=== PATIENT | female | born 1975 | race Caucasian/White ===

== ENCOUNTER 2022-12-30 11:46 | Outpatient (REF) | payer OTHER, MEDICAID, SELFPAY ==
--- NOTE | ~2022-12-30 | MR_ITS ---
EXAMINATION: MR LUMBAR SPINE WITHOUT AND WITH CONTRAST CLINICAL INFORMATION: Lower back pain extending into bilateral legs with burning, prior surgery COMPARISON: Outside MR lumbar spine with and without contrast 09/20/2022 TECHNIQUE: MRI of the lumbar spine was obtained using routine sequences with and without contrast. Intravenous contrast: Gadavist 8 mL FINDINGS: Normal anatomic alignment. No suspicious marrow signal or focal osseous lesion. The vertebral body heights are maintained. Disc desiccation at L4-L5 and L5-S1 with L5-S1 disc height loss The conus medullaris terminates at the level of L1-L2. The distal spinal cord is normal in appearance. The cauda equina nerve roots appear normal. No significant abnormalities of the paraspinal musculature. Subcutaneous edema throughout the dorsal soft tissues. Limited evaluation of the intra-abdominal structures without significant abnormalities. The abdominal aorta is of normal contour and caliber. SPINAL LEVELS: L1-L2: No significant spinal canal or neuroforaminal narrowing. L2-L3: No significant spinal canal or neuroforaminal narrowing. Mild facet arthropathy. L3-L4: No significant spinal canal or neuroforaminal narrowing. Shallow disc bulge and mild facet arthropathy. L4-L5: Shallow disc bulge with superimposed right foraminal protrusion. Mild to moderate facet arthropathy no significant central spinal canal stenosis. Stable mild to moderate right neural foraminal narrowing. L5-S1: Facet arthropathy. Postsurgical changes from right hemilaminectomy with enhancement along the surgical tract in the dorsal soft tissues. Similar appearance of solid enhancement in the right ventral epidural space just above the disc space (series 7 image 10), likely reflecting postoperative granulation tissue, which may impinge the exiting right L5 nerve root. There is also a stable residual/recurrent central and right subarticular disc protrusion with peripheral enhancement which compresses and posteriorly displaces the traversing right S1 nerve root. Mild stenosis of the right aspect of the spinal canal. Mild bilateral neural foraminal narrowing. MR/MR lumbar spine wo/w con IMPRESSION: Stable postoperative changes at L5-S1 status post right hemilaminectomy. There is a combination of residual/recurrent right central and subarticular disc protrusion as well as enhancing postoperative scarring in the right ventral epidural space which contribute to impingement of the right L5 and S1 nerve roots.
== END 2022-12-30 11:47 | disposition home or self-care (01) ==
LOC: HO.MRI 11:46
PROVIDERS: PCP Family Medicine; Visit Provider Neurological Surgery
DX: M51.16 Intervertebral disc disorders with radiculopathy, lumbar region (principal)
CPT/HCPCS: 72158; A9585

== ENCOUNTER 2023-01-28 09:46 | Day surgery (SDC) | payer OTHER, MEDICAID, SELFPAY ==
--- NOTE | 2023-01-21 | ECG_ITS ---
Test Reason : preop Blood Pressure : / mmHG Vent. Rate : 078 BPM Atrial Rate : 078 BPM P-R Int : 144 ms QRS Dur : 084 ms QT Int : 390 ms P-R-T Axes : 059 025 044 degrees QTc Int : 444 ms Normal sinus rhythm Normal ECG No previous ECGs available Referred By: Carol Alvarado Electronically Signed By:Rip Escoto
[2023-01-21 13:10] VITALS: BP 153/65; PULSE 76; RESP 20; O2SAT 98; BMI 28.3
--- NOTE | 2023-01-21 13:19 | P.CONAN_ITS ---
Documented by User: Carol Alvarado NP 01/27/23 08:50 HPI - Anesthesia Eval Consult details Narrative: 47yo F for Right REDO L5-S1 Microdiscectomy *Torus palatinus* Current 2 ppd smoker [facility] Past Medical History Medical History (Updated 01/21/23 @ 13:08 by Jesusita Robert RN) Anxiety and depression Asthma Elevated cholesterol GERD (gastroesophageal reflux disease) HTN (hypertension) Hypothyroid Insomnia Perforated eardrum Renal calculi Thyroid nodule Torus palatinus Family History Family history of problems with anesthesia: No Surgical History Surgical History (Updated 01/28/23 @ 10:10 by Renetta Sexton) H/O colonoscopy History of thyroidectomy, total Hx of breast biopsy Hx of lumbar discectomy Hx of partial thyroidectomy Hx of tubal ligation History of Problems with Anesthesia: No Social History Social History Are you a primary manager home healthcare to a significant other at home: No Do you presently have visiting nurse or other home services: No Patient Tobacco Use Status: Current everyday Tobacco user Tobacco use type: Cigarette Cigarette Packs Per Day: 2 Cigarettes Per Day: 40.0 Years Smoked: 35 Patient Interested in Nicotine Replacement: Yes Use of substances other than those prescribed or required for medical reasons: No Have you been hit, kicked, punched, or otherwise hurt by someone within the past year? If so, by whom?: No Are you DNR?: No Advance Directives Information Provided: Yes (as above noted-not on file [facility] Advance Directives on File: No Recently lost weight without trying: No Eating poorly because of decreased appetite: No Nutrition Risks: No Nutritional Risk Patient : No ([id number]) FDLMP: 12/12/22 : No Poor oral hygiene: No (left upper chipped teeth/missing teeth) Narrative Narrative: No recent illness CP related to anxiety, Asthma at baseline Meds Allergies Allergy/AdvReac Type Severity Reaction Status Date / Time adhesive tape Allergy Intermediate Hives Verified 01/21/23 13:07 codeine Allergy Intermediate Vomiting/hi Verified 01/21/23 13:07 ves Penicillins Allergy Intermediate vomiting/hi Verified 01/21/23 13:07 ves Home Medications Medication Instructions Recorded Confirmed Last Taken Type albuterol sulfate 90 mcg/actuation 2 puff inhalation Q4H PRN wheezing 01/20/23 01/28/23 Unknown History aerosol inhaler (Ventolin HFA) baclofen 10 mg tablet 10 mg PO BEDTIME PRN pain 01/20/23 01/28/23 Unknown History clonazepam 2 mg tablet 2 mg PO BEDTIME PRN insomnia 01/20/23 01/28/23 Unknown History fenofibrate 160 mg tablet 160 mg PO DAILY 01/20/23 01/28/23 Unknown History fluticasone propionate 110 2 puff inhalation BID 01/20/23 01/28/23 01/28/23 08:00 History mcg/actuation HFA aerosol inhaler (Flovent HFA) gabapentin 300 mg capsule 300 mg PO BID 01/20/23 01/28/23 01/28/23 08:00 History lamotrigine 200 mg tablet 200 mg PO QAM 01/20/23 01/28/23 01/28/23 08:00 History levothyroxine 50 mcg tablet 50 mcg PO DAILY 01/20/23 01/28/23 01/28/23 08:00 History omeprazole 20 mg capsule,delayed 20 mg PO DAILY 01/20/23 01/28/23 01/28/23 08:00 History release trazodone 100 mg tablet 200 mg PO BEDTIME 01/20/23 01/28/23 Unknown History zolpidem 10 mg tablet 10 mg PO BEDTIME 01/20/23 01/28/23 Unknown History acetaminophen 500 mg tablet 1,000 mg PO TID 01/21/23 01/28/23 Unknown History loratadine 10 mg tablet 10 mg PO BEDTIME 01/21/23 01/28/23 Unknown History lurasidone 120 mg tablet 120 mg PO QPM 01/21/23 01/28/23 Unknown History Exam Exam Date and Time: January 21, 2023 131 Pertinent Lab Results Pertinent Lab Results: Lab Results 01/21/23 01/21/23 Range/Units 13:48 13:48 WBC 10.2 (4.8-10.8) X10*3/uL RBC 4.28 (4.20-5.50) X10*6/uL Hgb 12.8 (12.0-16.0) g/dl Hct 39.1 (37.0-47.0) % MCV 91.4 (80.0-98.0) fL MCH 29.9 (27.0-33.0) pg MCHC 32.7 (31.0-35.0) g/dl RDW 13.7 (11.0-16.0) % Plt Count 289 (160-400) X10*3/uL MPV 9.0 L (9.4-12.3) fL Absolute Nucleated RBC 0.000 (0.0-0.012) X10*3/uL Nucleated RBC % (auto) 0.0 (0.0-0.2) /100WBC Sodium 140 (135-145) mmol/L Potassium 5.3 H (3.3-5.1) mmol/L Chloride 106 (96-108) mmol/L Carbon Dioxide 25 (22-29) mmol/L Anion Gap 14 (12-20) BUN 7 L (9-16) mg/dL Creatinine 0.82 (0.5-1.4) mg/dL Estim Creat Clear Calc 85.9 Estimated GFR > 60 Random Glucose 97 (60-115) mg/dL Calcium 9.5 (8.4-10.2) mg/dL Narrative Narrative: EKG 01/2023 Vent. Rate : 078 BPM ? ? Atrial Rate : 078 BPM ?? P-R Int : 144 ms? QRS Dur : 084 ms ? ? QT Int : 390 ms ? ? ? P-R-T Axes : 059 025 044 degrees ?? QTc Int : 444 ms ? Normal sinus rhythm Normal ECG No previous ECGs available Airway Mallampati Class: II (Torus palatinus) TM Dist: >3cm Neck ROM: Full Loose/Missing/Broken Teeth: Yes (Poor dentition throughout, many missing and chipped) Heart: RRR Lungs: CTAB Assessment and Plan Assessment Anesthesia Assessment: Anesthesia Plan Discussed, Smoking Cess. Discussed and PAT Visit Final Anesthetic Review Family History of Problems with Anesthesia: No History of Problems with Anesthesia: No Documented by User: Rian Bolton MD 01/28/23 11:01 [facility] Past Medical History Medical History (Updated 01/21/23 @ 13:08 by Jesusita Robert RN) Anxiety and depression Asthma Elevated cholesterol GERD (gastroesophageal reflux disease) HTN (hypertension) Hypothyroid Insomnia Perforated eardrum Renal calculi Thyroid nodule Torus palatinus Surgical History Surgical History (Updated 01/28/23 @ 10:10 by Renetta Sexton) H/O colonoscopy History of thyroidectomy, total Hx of breast biopsy Hx of lumbar discectomy Hx of partial thyroidectomy Hx of tubal ligation Social History Social History Are you a primary manager home healthcare to a significant other at home: No Do you presently have visiting nurse or other home services: No Patient Tobacco Use Status: Current everyday Tobacco user Tobacco use type: Cigarette Cigarette Packs Per Day: 2 Cigarettes Per Day: 40.0 Years Smoked: 35 Patient Interested in Nicotine Replacement: Yes Use of substances other than those prescribed or required for medical reasons: No Have you been hit, kicked, punched, or otherwise hurt by someone within the past year? If so, by whom?: No Are you DNR?: No Advance Directives Information Provided: Yes (as above noted-not on file [facility] Advance Directives on File: No Recently lost weight without trying: No Eating poorly because of decreased appetite: No Nutrition Risks: No Nutritional Risk Patient : No ([id number]) FDLMP: 12/12/22 : No Poor oral hygiene: No (left upper chipped teeth/missing teeth) Meds Allergies Allergy/AdvReac Type Severity Reaction Status Date / Time adhesive tape Allergy Intermediate Hives Verified 01/21/23 13:07 codeine Allergy Intermediate Vomiting/hi Verified 01/21/23 13:07 ves Penicillins Allergy Intermediate vomiting/hi Verified 01/21/23 13:07 ves Home Medications Medication Instructions Recorded Confirmed Last Taken Type albuterol sulfate 90 mcg/actuation 2 puff inhalation Q4H PRN wheezing 01/20/23 01/28/23 Unknown History aerosol inhaler (Ventolin HFA) baclofen 10 mg tablet 10 mg PO BEDTIME PRN pain 01/20/23 01/28/23 Unknown History clonazepam 2 mg tablet 2 mg PO BEDTIME PRN insomnia 01/20/23 01/28/23 Unknown History fenofibrate 160 mg tablet 160 mg PO DAILY 01/20/23 01/28/23 Unknown History fluticasone propionate 110 2 puff inhalation BID 01/20/23 01/28/23 01/28/23 08:00 History mcg/actuation HFA aerosol inhaler (Flovent HFA) gabapentin 300 mg capsule 300 mg PO BID 01/20/23 01/28/23 01/28/23 08:00 History lamotrigine 200 mg tablet 200 mg PO QAM 01/20/23 01/28/23 01/28/23 08:00 History levothyroxine 50 mcg tablet 50 mcg PO DAILY 01/20/23 01/28/23 01/28/23 08:00 History omeprazole 20 mg capsule,delayed 20 mg PO DAILY 01/20/23 01/28/23 01/28/23 08:00 History release trazodone 100 mg tablet 200 mg PO BEDTIME 01/20/23 01/28/23 Unknown History zolpidem 10 mg tablet 10 mg PO BEDTIME 01/20/23 01/28/23 Unknown History acetaminophen 500 mg tablet 1,000 mg PO TID 01/21/23 01/28/23 Unknown History loratadine 10 mg tablet 10 mg PO BEDTIME 01/21/23 01/28/23 Unknown History lurasidone 120 mg tablet 120 mg PO QPM 01/21/23 01/28/23 Unknown History Assessment and Plan Final Anesthetic Review ASA Class: III Final Preanesthetic Review: No Changes in Pt Med Stat, Meds/Allgs Chart Reviewed, Consent Obtained/Reviewed and Anes Risks/Benef Reviewed Patient Risk: Intermediate Procedure Risk: Intermediate Anesthetic Plan Anesthetic Plan: GA and Agree w/ Assess. and Plan Disposition: Standard PACU
[2023-01-21 14:04] LABS: Hematocrit 39.1 % (37.0-47.0); Hemoglobin 12.8 g/dl (12.0-16.0); Mean Corpuscular HGB Conc 32.7 g/dl (31.0-35.0); Mean Corpuscular Hemoglobin 29.9 pg (27.0-33.0); Mean Corpuscular Volume 91.4 fL (80.0-98.0); Platelet Count 289 X10*3/uL (160-400); Red Blood Count 4.28 X10*6/uL (4.20-5.50); Red Cell Distribution Width 13.7 % (11.0-16.0); White Blood Count 10.2 X10*3/uL (4.8-10.8)
[2023-01-21 14:35] LABS: Anion Gap 14 (12-20); Blood Urea Nitrogen 7 mg/dL (9-16); Calcium 9.5 mg/dL (8.4-10.2); Carbon Dioxide 25 mmol/L (22-29); Chloride 106 mmol/L (96-108); Creatinine Clr Calc Pharmacy 85.9; Estimated Glomerular Filt Rate > 60; Glucose Random 97 mg/dL (60-115); Potassium 5.3 mmol/L (3.3-5.1); Sodium 140 mmol/L (135-145)
[2023-01-28] VITALS (10 sets, daily range): BP systolic 119–149; BP diastolic 50–70; PULSE 65–78; RESP 12–17; TEMP 36.1–36.7; O2SAT 97–100; BMI 28.5
--- NOTE | ~2023-01-28 | FL_ITS ---
EXAMINATION: XR FLUOROSCOPY WITH IMAGES CLINICAL INFORMATION: Microdiscectomy, redo. COMPARISON: MR lumbar spine 12/30/2022 TECHNIQUE: Fluoroscopy Supervised By: Dr. Franklyn Coffey. Fluoroscopy Time: Under 1 minute. Cumulative Dose: 4.31 mGy. DAP: 1.04 Gycm2. Images: 1. FINDINGS: There is a conduit posterior soft tissues through which a cannula is seen with tip overlying the lumbosacral disc at level mid vertebral body. FL/FL guidance in OR IMPRESSION: Fluoroscopy for neurosurgical procedure.
[2023-01-28] MEDS: Albuterol Sulfate (0.083%) 2.5 MG/3 ML VIAL.NEB INHALE (10:12)
--- NOTE | 2023-01-28 10:15 | PC.NURSE ---
VERIFIED PREOP VANCO DOSE OF 1000MG WITH LAUREN FROM PHARMACY.
[2023-01-28] MEDS: Gabapentin 300 MG CAPSULE PO (10:19)
[2023-01-28] MEDS: methocarbamoL 750 MG TABLET PO (10:19)
[2023-01-28] MEDS: Lactated Ringers 1,000 ML 100 ML IVCONT (10:19)
[2023-01-28] MEDS: vancomycin HCL 1,000 MG in 0.9 % Sodium Chloride 250 ML 270 MG IV (10:35)
--- NOTE | 2023-01-28 12:15 | PC.NURSE ---
Electrolytes drawn at bedside pre perop order by radio communications mechanician Mirna. Results shown pending in computer. Marie GLOVE BRUSHER at bedside for report. Labs shown still pending. This RN reached out to lab and was told by Iris The specimen was received however it was hemolized and unable to be run properly, we will need to come and redraw her . Dr. Ratliff at bedside and made aware of this. All most recent labs shown to him. Per him, no need for redraw at this time. May proceed with surgery without electyolyte results. Marie made aware.
--- NOTE | 2023-01-28 13:44 | PM.DS ---
DS: Providers Provider Date of Service: 01/28/23 Date of discharge: 01/28/23 Primary care physician: Kentrell Reynolds MD Admitting clinician: Franklyn Coffey DS: Diagnosis Discharge Diagnosis (1) Back pain of lumbar region with sciatica: Status: Acute DS: Summary Time Spent with Patient Time attestation: Total time managing care of this patient today ____ minutes. Discharge coordination time: Less than 30 minutes Quality: Safe Use of Opioids Does Pt have an Active Cancer Diagnosis on the Problem List?: No Quality: Stroke Does the patient have a stroke diagnosis?: No Physical Exam Vital Signs: Vital Signs: Last Vital Signs Temp 98.1 F 01/28/23 10:14 Pulse 65 01/28/23 10:14 Resp 16 01/28/23 10:14 BP 149/70 H 01/28/23 10:14 Pulse Ox 100 01/28/23 10:14 O2 Del Method Room Air 01/28/23 10:14 BMI result Body Mass Index 28.5 Discharge Plan Discharge Patient Disposition: Home, Self-Care Referrals: Kentrell Reynolds MD [Primary Care Provider] - 1 Week Discharge Medications: New docusate sodium [Colace] 100 mg capsule 100 mg PO BID Qty: 20 0RF oxycodone 5 mg tablet 5 mg PO Q4H PRN (Reason: pain) Qty: 30 0RF Rx Instructions: Partial Fill upon patient request. Continued lamotrigine 200 mg tablet 200 mg PO QAM trazodone 100 mg tablet 200 mg PO BEDTIME baclofen 10 mg tablet 10 mg PO BEDTIME PRN (Reason: pain) levothyroxine 50 mcg tablet 50 mcg PO DAILY clonazepam 2 mg tablet 2 mg PO BEDTIME PRN (Reason: insomnia) gabapentin 300 mg capsule 300 mg PO BID omeprazole 20 mg capsule,delayed release(DR/EC) 20 mg PO DAILY zolpidem 10 mg tablet 10 mg PO BEDTIME albuterol sulfate [Ventolin HFA] 90 mcg/actuation HFA aerosol inhaler 2 puff inhalation Q4H PRN (Reason: wheezing) fluticasone propionate [Flovent HFA] 110 mcg/actuation HFA aerosol inhaler 2 puff inhalation BID fenofibrate 160 mg tablet 160 mg PO DAILY acetaminophen 500 mg Tablet 1,000 mg PO TID loratadine 10 mg Tablet 10 mg PO BEDTIME lurasidone 120 mg tablet 120 mg PO QPM Discharge Orders: Discharge Order (Routine); Ordered 01/28/23 Ordered By: Alexandr Cavazos Diet: Advance to usual diet Activity on Discharge: As tolerated Activity Restrictions/Additional Instructions: After your spinal surgery we ask you to observe the following restrictions/guidelines: Activity: It is normal to feel some discomfort as you increase your activity, but that will improve with time. We ask you avoid heavy lifting or acitivities that cause pain. As a general rule, 8lbs is a safe limit for lifting right after surgery. Walk as much as you feel comfortable but not to exhaustion. You will feel extra tired the first few days after surgery. Stay well hydrated. It is OK to walk up and down stairs You may return to driving when you are off narcotics (such as vicodin, oxycodone, dilaudid, etc), and you are back to normal functional capacity. If you have any concerns please check with office before driving. Return to work is specific to each patient and each surgery, so please speak with your doctor/PA at first follow up. Please bring paperwork such as FMLA at that time if you need it filled out. Medications: We will give you a short supply of narcotics after surgery (usually one weeks worth). If you need more please call the office but do not use more than prescribed. You will need to give our office 48 hours notice if you need narcotics refilled and we do not fill narcotics on weekends or evenings. If you are on a narcotic, it is a good idea to take a stool softener such as colace or senna to avoid constipation If you take blood thinner such as aspirin, Plavix, Coumadin, Effient, Eliquis etc for conditions such as Afib, DVT, Pulmonary embolus, coronary disease, stents etc please speak with your surgeon about specific details as to when you can resume these medications. You can resume NSAIDs on post op day 1 (eg: Motrin, Naproxen, etc). Follow up: Please call the office, , after surgery to arrange a 3 week follow up for wound check. Wound Care: You may remove your dressing on the first day after surgery. You may leave open to air. Please do not remove the steri strips underneath. they will fall off on their own in one week. IT IS NORMAL FOR THE WOUND TO OOZE OR BE BLOODY FOR A FEW DAYS AFTER SURGERY. IF THIS HAPPENS JUST PLACE NEW DRESSING OVER IT TO AVOID STAINING CLOTHES. You may shower on post op day # 1 We ask that you do not let the water soak the wound. If it does get wet, just towel dry lightly. Please do not scrub your incision or place any type of chemical/ointment on the wound. No tub baths, pools or jacuzzis for one month. If you have any leaking or redness from your wound, or fevers, please call office
--- NOTE | 2023-01-28 13:58 | W.PM.OPN ---
Operative Note Operative Note Date of Service: 01/28/23 Narrative: Preoperative diagnosis: Recurrent L5-S1 lumbar radiculopathy due to disc herniation Postoperative diagnosis: Same Procedure: Recurrent lumbar microdiskectomy L5-S1, right side with microscope Surgeon: Franklyn Coffey MD, PhD Manufactured Buildings Repairer: Alexandr Cavazos PA-C This 47-year-old female had a previous lumbar microdiskectomy done where a big herniation was removed. The majority of her symptoms initially improved but then she started complaining of bilateral leg pain greater right side is more affected than the left side. A repeat MRI possibly shows ongoing compression of the L5 nerve root on the right side. The patient was offered a redo lumbar microdiskectomy L5-S1 to decompress the nerve root. She is aware that this is not going to help with her left-sided symptoms. The procedure complications were explained. The patient was consented. The patient was brought to the operating room and endotracheally intubated. The patient was turned in a prone position on the Joss frame. Prepping and draping was done followed by time-out. A mid lumbar incision was made followed by release of the paravertebral muscles on the right side to expose the L5-S1 interspace. An intraoperative x-rays obtained to confirm the correct level. The microscope was brought in. The previous L5 laminotomy was extended cranially. The flavum ligament was opened. The S1 nerve root was identified and retracted medially to expose the L5-S1 disc space. I inspected the intraforaminal area by doing a partial facetectomy. I removed some disc material laterally from the thecal sac but a clear disc herniation was not found. The previous annulotomy defect was seen but again no significant disc herniation was found. The S1 nerve root was clearly decompressed. At was no clear compression of the L5 nerve root. Hemostasis was done. The microscope was removed. Marcaine was injected intramuscularly.The incision was closed in two layers. Steri-Strips used to approximate seizure. An op-site were taken there was used to cover the incision. All sponge and needle counts were correct. Patient was extubated and transported in stable condition to recovery room. This procedure was done with the aid of a physician office clerk assistant who performed the initial exposure until the microscope was brought in and performed the closure of the incision. Anesthesia: General Blood loss: 30 mL Complications: None Specimen: None Disposition: Discharge home
--- NOTE | 2023-01-28 14:31 | PC.NURSE ---
Dr. Barclay ordered to not draw electrolytes. Says he will cancel order
[2023-01-28] MEDS: fentaNYL citrate/PF 100 MCG/2 ML VIAL 50 MCG IVPUSH (14:39)
[2023-01-28] MEDS: oxyCODONE HCl Immed Release 5 MG TABLET PO (14:41)
[2023-01-28] MEDS: ondansetron HCL 4 MG/2 ML VIAL IVPUSH (14:54)
== END 2023-01-28 15:43 | disposition home or self-care (01) ==
PROVIDERS: Nurse Practitioner; PCP Family Medicine; Visit Provider Neurological Surgery
PROC: (CPT 63042; principal; 2023-01-28 11:50)
DX: M51.26 Other intervertebral disc displacement, lumbar region (principal); M79.604 Pain in right leg; I10 Essential (primary) hypertension; E78.00 Pure hypercholesterolemia, unspecified; J45.909 Unspecified asthma, uncomplicated; E89.0 Postprocedural hypothyroidism; K21.9 Gastro-esophageal reflux disease without esophagitis; M27.0 Developmental disorders of jaws; Z79.51 Long term (current) use of inhaled steroids; Z79.899 Other long term (current) drug therapy; Z88.0 Allergy status to penicillin; Z88.8 Allergy status to other drugs, medicaments and biological substances; Z98.890 Other specified postprocedural states; F17.210 Nicotine dependence, cigarettes, uncomplicated
CPT/HCPCS: 63042; 36415; 80048; 85027; 93005; 94640; J0131; J1885; J2405; J3010; J3370

== ENCOUNTER → 2023-03-05 15:21 | Outpatient (BNVA) | payer OTHER, MEDICAID, SELFPAY | PROVIDERS: Visit Provider Physician Assistant ==

== ENCOUNTER 2025-02-26 15:16 | Outpatient (AMB) | payer OTHER, MEDICAID, SELFPAY ==
--- NOTE | 2025-02-26 15:28 | A.SPINEOV_ITS ---
Intake Visit Reasons: back pain after surgery Intake Note: Ms. Campa is here today c/o back pain after surgery. Customer Assistance Representative Required: No Allergies adhesive tape Allergy (Intermediate, Verified 01/21/23 13:07) Hives codeine Allergy (Intermediate, Verified 01/21/23 13:07) Vomiting/hives Penicillins Allergy (Intermediate, Verified 01/21/23 13:07) vomiting/hives Assessment & Plan Assessment & Plan (1) Back pain of lumbar region with sciatica: Code(s): M54.40 - Lumbago with sciatica, unspecified side Category: Medical Plan Mrs campa is here in follow-up. We did 2 previous microdiskectomies on her, the last 1 was about 2 years ago and at that time we did not find any significant disc material compressing the nerves. She has had chronic radiculopathy in her legs for years. Apparently when she went back to the [place] [facility], she deferred getting a spinal cord stimulator because she did not want anymore surgery. She continues to complain of sensitivity in her low back with sitting as well as pain down her legs with walking. She has not had an MRI in a few years so I think it is worth checking on things to make sure nothing has changed. She has done the injections and has been taking morphine pills and Tylenol to help with the discomfort. I will see her back after the MRI is completed. She would like to do it at [facility] and will come back with the disc to review. Total amount of time spent in this visit was 20 minutes in discussion of symptoms, ordering MRI imaging results and subsequent plan of care Alexandr Coffey MD,PhD [facility] Orders: Orders MR lumbar spine wo/w con Today M54.40 - Lumbago with sciatica, unspecified side Coding Level of Care Code Est Pt Level 3 (27591) Diagnoses Back pain of lumbar region with sciatica M54.40
--- OUTSIDE RECORDS SUMMARY | 2025-02-26 16:49 | XMS_ITS | Clinical Summary ---
Author Organization [address] Building Address [address] [place] [phone] Phone Care Team Providers Care Ct Manager Name Role Phone Paulino Justice MD Primary Care Provider [phone] Allergies Active Allergy Reactions Criticality Noted Date Comments Adhesive Tape-Silicones 07/08/2005 [place] And Derivatives Nausea And Vomiting 07/08 Codeine Hives 07/08/2005 Penicillin G Potassium Hives 07/08/2005 Spinach Hives Low 12/20/2018 Cannot have canned Medications zolpidem (AMBIEN) 10 mg tablet Take 1 tablet (10 mg total) by mouth at bedtime. Active morphine (MSIR) 15 mg tablet Take 1 tablet (15 mg total) by mouth every 4 (four) hours if needed. Active lurasidone (LATUDA) 60 mg tablet Take 1 tablet (60 mg total) by mouth 1 (one) time each day with breakfast. 5 Active traZODone (DESYREL) 100 mg tablet Take 1 tablet (100 mg total) by mouth at bedtime. Active fenofibrate (LOFIBRA) 160 mg tablet Take 1 tablet (160 mg total) by mouth 1 (one) time each day. 90 tablet 1 5 Active aspirin 81 mg EC tablet Take 1 tablet (81 mg total) by mouth 1 (one) time each day. 90 tablet 1 5 Active levothyroxine (SYNTHROID, LEVOTHROID) 50 mcg tablet Take 1 tablet (50 mcg total) by mouth 1 (one) time each day. 90 tablet 1 5 Active omeprazole (PriLOSEC) [address] capsule Take 1 capsule (40 mg total) by mouth 1 (one) time each day. 90 capsule 1 5 Active albuterol HFA (PROAIR HFA ; PROVENTIL HFA ; VENTOLIN HFA) 90 mcg/actuation inhaler Inhale 2 puffs by mouth every 6 (six) hours if needed for wheezing or shortness of breath. 6.7 g 5 Active gabapentin (NEURONTIN) 300 mg capsule Take 1 capsule (300 mg total) by mouth 1 (one) time each day. 90 capsule 5 Active fluticasone furoate (ARNUITY ELLIPTA) 100 mcg/actuation blister with device inhalerIndicatio ns:Mild intermittent asthma without complication Inhale 1 puff by mouth 1 (one) time each day. 1 each 3 5 Active ferrous sulfate 325 mg (65 mg iron) EC tablet Take 1 tablet (325 mg total) by mouth 3 (three) times a day with meals. Do not crush, chew, or split. 270 each 1 5 Active docusate sodium (COLACE) 100 mg capsule Take 1 capsule (100 mg total) by mouth 2 (two) times a day. 180 capsule 1 5 Active docusate sodium (COLACE) 100 mg capsule Take 1 capsule (100 mg total) by mouth 2 (two) times a day. 180 capsule 1 5 02/16/20 25 Discontin ued(Reord er) ferrous sulfate 325 mg (65 mg iron) EC tablet Take 1 tablet (325 mg total) by mouth 3 (three) times a day with meals. Do not crush, chew, or split. 30 each 5 5 02/16/20 25 Discontin ued(Reord er) Hospital, Clinic, or Other Facility Administered Medication Ordered Dose Route Frequency Start Date End Date Status fluticasone furoate (ARNUITY ELLIPTA) inhaler blister with device 1 puffIndications:Mild intermittent asthma without complication 1 puff inhl Daily 07/19/2024 Active Active Problems Problem Noted Date Diagnosed Date Hemorrhage of rectum and anus 07/10/2024 Elevated blood pressure reading 09/11/2022 History of COVID-19 02/16/2022 Hiatal hernia 07/15/2021 Kidney stone 07/15/2021 Overview (07/10/2024): Bilateral Low back pain 06/12/2019 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 Mixed hyperlipidemia 01/03/2015 Hypothyroid 11/03/2012 Acne 12/02/2010 Heartburn 05/05/2006 Goiter 10/27/2005 Overview (07/10/2024): S/p l thyroid lobectomy Depressive disorder 10/05/2005 Anxiety state 07/08/2005 Asthma 07/08/2005 Encounters Date Type Department Care Team Description 02/16/2025 Telephone Internal Medicine - [address] [phone] Paulino Justice MD Medication Problem 12/08/2024 4:00 PM EDT Office Visit Walk-In Clinic - [address] [phone] Alexis Dyer PA Acute cough (Primary Dx) 12/06/2024 Telephone Internal Medicine - [address] [phone] Paulino Justice MD Fitting for DME (DME-Rollator) 11/29/2024 Telephone Internal Medicine - [address] [phone] Paulino Justice MD Medication Problem (polyethylene glycol (Miralax) 17 gram/dose oral powder) from Last 3 Months Immunizations Name Administration Dates Next Due Influenza Quadravalent, MDCK , 0.5ml, preservative free (Flucelvax) 6mo and older 05/22/2022,05/21/2020 Influenza trivalent, 0.5mL, preservative free (Fluarix; FluLaval; Fluzone) ages 6mo and older (Afluria) 3 years and older 05/20/2019,05/05/2015,05/22/2011,05/21 Influenza, Unspecified 05/21/2021 Pfizer SARS-CoV-2 COVID-19, mRNA, LNP-S, preservative free 01/04/2021 Pneumococcal polysaccharide 23 valent (Pneumovax 23) 2yo and older 05/08/2013 Td Tetanus diptheria (Tdvax) 7yo and older 10/12/2002 Tdap Tetanus diptheria acell ular pertussis (Boostrix; Adacel) 7yo and older 11/03/2012 Surgical History Surgery Date Site/Laterality Comments TUBAL LIGATION 09/06/1998 PROCEDURE: HISTORICAL TUBAL LIGATION BACK SURGERY 09/06/2010 PROCEDURE: HISTORICAL BACK SURGERY; COMMENT: lowr lumbar hernia repair OTHER SURGICAL HISTORY PROCEDURE: HISTORICAL SUBTOTAL THYROIDECTOMY; COMMENT: l side removed 2006 BREAST BIOPSY PROCEDURE: BX BREAST; PERC NEEDLE CORE W/IMAG GUID; COMMENT: lt BREAST LUMPECTOMY 09/06/1999 PROCEDURE: HISTORICAL BREAST LUMPECTOMY; COMMENT: LEFT BREAST OTHER SURGICAL HISTORY 09/06/2013 PROCEDURE: THYROID,NEEDLE ASPIRATION CYTOLOGY EXAM; COMMENT: benign OTHER SURGICAL HISTORY 01/26/2023 PROCEDURE: DECOMPRESS DISC RF LUMBAR; COMMENT: repeat, Dr. Coffey Medical History Medical History Date Comments Hemorrhage of rectum and anus DX :Hemorrhage of rectum and anus Tubal ligation status 11/25/99 DX:Tubal l igation status; COMMENT: DR. 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 DX:Torus palatin us; COMMENT: Benign grown on palate since childhood Kidney stone 07/15/2021 DX:Kidney stone; COMMENT: Bilateral Family History Medical History Relation Name Comments Other cancer Daughter 1 LEUKEMIA Hyperlipidemia Father stents Coronary artery disease Mother dece ased, Parkinson's Diabetes Sister 1 Breast cancer Neg Hx Relation Name Status Comments Daughter 1 Daughter 2 Alive Daughter 3 Alive Father Alive Mother Sister 1 Sister 2 Alive Son 1 Alive Son 2 Alive Social History Tobacco Use Types Packs/Day Years Used Date Smoking Tobacco: Every Day Cigarettes 1.5 36.5 Started: 09/06/1988 Smokeless Tobacco: Never Tobacco Cessation:Ready to Q uit: Not Asked; Counseling Given: Not Answered Alcohol Use Standard Drinks/Week Comments No 0 (1 standard drink = 0.6 oz pur e alcohol) Comments No Sex and Gender Information Value Date Recorded Sex Assigned at Not on file Legal Sex Female 11:01 AM EST Gender Identity Not on file Sexual Orientation Not on file Obstetrics History Last Filed Vital Signs Vital Sign Reading Time Taken Comments Blood Pressure 116/65 12/08/2024 4:12 PM EDT Pulse 73 12/08/2024 4:12 PM EDT Temperature 36.1 C (97 F) 12/08/2024 4:12 PM EDT Respiratory Rate - - Oxygen Saturation 98% 12/08/2024 4:12 PM EDT Inhaled Oxygen Concentration - - Weight 75.3 kg (166 lb) 11/01/2024 3:36 PM EST Height 165.1 cm (5' 5 ) 11/01/2024 3:36 PM EST Body Mass Index 27.62 11/01/2024 3:36 PM EST Plan of Treatment Upcoming Encounters Date Type Department Care Team (Late st Contact Info) Description 05/01/2025 4:30 PM EDT [facility] [address] [place] [phone] Paulino Justice MD [address] [place] [address] Health Maintenance Due Date Last Done Comments Hepatitis B Vaccines (1 of 3 - 19+ 3-dose series) 1992 Zoster Vaccines (1 of 2) 1992 Pneumococcal Vaccine: 50+ Years (2 of 2 - PCV) 05/08/2014 05/08/2013 Pneumococcal Vaccine: Pediatrics (0 to 5 Years) and At-Risk Patients (6 to 64 Years) (2 of 2 - PCV) 05/08/2014 05/08/2013 COVID-19 Vaccine (3 - Pfizer risk series) 02/01/2021 01/04/2021, 12/14/2020 Cervical Cancer Screening: Pap Smear 02/09/2021 02/09/2018 Colorectal Cancer Screening: Colonoscopy 08/15/2022 Depression Screening 08/15/2022 HIV Screening 08/15/2022 Hepatitis C Screening 08/15/2022 Lung Cancer Screening (Low Dose CT) 08/15/2022 Social Influencers of Health Screening 08/15/2022 DTaP,Tdap,and Td Vaccines (3 - Td or Tdap) 11/03/2022 11/03/2012, 10/12/2002 Breast Cancer Screening 11/11/2022 11/12/19, 05/10/2019, 04/07/2018, Additional history exists Influenza Vaccine (Season Ended) 2025 05/22/2022, 05/21/2021, 05/16/2021, Additional history exists Cholesterol Screening (Lipid Panel) 10/30/2029 10/30/2024, 04/21/2024, 04/21/2024 HIB Vaccines Aged Out No longer eligi ble based on patient's age to complete this topic HPV Vaccines Aged Out No longer eligi ble based on patient's age to complete this topic Hepatitis A Vaccines Aged Out No long er eligible based on patient's age to complete this topic IPV Vaccines Aged Out No longer eligi ble based on patient's age to complete this topic MMR Vaccines Aged Out No longer eligi ble based on patient's age to complete this topic Meningococcal ACWY Vaccine Aged Out N o longer eligible based on patient's age to complete this topic Meningococcal B Vaccine Aged Out No l onger eligible based on patient's age to complete this topic RSV Immunization Patients Under 20 months Aged Out No longer eligible based on patient's age to complete this topic Varicella Vaccines Aged Out No longer eligible based on patient's age to complete this topic Procedures Procedure Name Priority Date/Time Associated Diagnosis Comments POC RESPIRATORY SYNCYTIAL VIRUS Routine 12/08/2024 4:30 PM EDT Acute cough LIPID PANEL WITH REFLEX TO DIRECT LDL Routine 10/30/2024 4:09 PM EST Mixed hyperlipidemia SCR MAMMO BI INCL CAD Routine 11/11/2020 4:13 PM EST Encounter for other screening for malignant neoplasm of breast PAP SMEAR Routine 02/09/2018 from Last 3 Months or Most Recently Relevant to Health Maintenance Results * POC respiratory syncytial virus manually resulted (12/08/2024 4:30 PM EDT) Pathologist [facility] RSV Rapid AG POC Negative Negative Swab Nasopharyngeal structure / Unknown 12/08/2024 4:30 PM EDT Alexis REED POINT OF CARE TEST ENTER/E DIT ORDERABLES Final Result * (ABNORMAL) Lipid panel with reflex to direct LDL (10/30/2024 4:09 PM EST) Pathologist [facility] Cholesterol 170 0 - 200 mg/dL LAB CHEMISTRY METHOD 10/30/2024 7:39 PM [facility] Triglycerides 147 0 - 150 mg/dL LAB CHEMISTRY METHOD 10/30/2024 7:39 PM [facility] HDL 36(L) >=40 mg/dL LAB CHEMISTRY METHOD 10/30/2024 7:39 PM [facility] LDL Calculated 105(H) 0 - 100 mg/dL LAB CHEMISTRY METHOD 10/30/2024 7:39 PM [facility] VLDL Cholesterol Julius 29.4 mg/dL LAB CHEMISTRY METHOD 10/30/2024 7:39 PM [facility] Non HDL Chol. (LDL+VLDL) 134 <145 mg/dL LAB CHEMISTRY METHOD 10/30/2024 7:39 PM [facility] Chol/HDL Ratio 4.7(H) 0.0 - 4.4 LAB CHEMISTRY METHOD 10/30/2024 7:39 PM [facility] Blood Venous blood specimen / Unknown Venipuncture / Unknown 10/30/2024 4:09 PM EST 10/30/2024 4:09 PM EST us Paulino Justice MD LAB BLOOD ORDERABLES Final Resu lt [facility] [address] [place] [address], * SCR MAMMO BI INCL CAD (11/11/2020 4:13 PM EST) Anatomical Region Laterality Modality Radiographic Chichi ging 09/10/2020 4:24 PM EST Narrative 11/12/2020 9:23 AM EST This is a summary report. The complete report is available in the patient's medical record. If you cannot access the medical record, please contact the sending organization for a detailed fax or copy. Full field digital screening mammography, reviewed with CAD and compared to previous. The breast tissue is heterogeneously dense, limiting sensitivity. No suspicious mass, architectural distortion or suspicious calcifications are identified. IMPRESSION: : Dense breast tissue, limiting the sensitivity of mammography. No mammographic evidence of malignancy. BIRADS 1-Negative; N. 5 year breast cancer risk assessment 1.5 % Lifetime breast cancer risk assessment 11.2 % Breast cancer risk category Low (<15%) Procedure Note Jeff Kaur MD - 08/25/2022 This is a summary report. The complete report is available in thepatient's medical record. If you cannot access the medical record, pleasecontact the sending organization for a detailed fax or copy. Full field digital screening mammography, reviewed with CAD and comparedto previous. The breast tissue is heterogeneously dense, limitingsensitivity. No suspicious mass, architectural distortion or suspiciouscalcifications are identified. IMPRESSION: : Dense breast tissue, limiting the sensitivity of mammography. Nomammographic evidence of malignancy. BIRADS 1-Negative; N. 5 year breast cancer risk assessment 1.5 % Lifetime breast cancer risk assessment 11.2 % Breast cancer risk category Low (<15%) Rose Diehl MD IMG XR PROCEDURES Fi nal Result * Pap smear (02/09/2018) 02/09/2018 Narrative HISTORICAL TESTING LAB RESULTING AGENCY - 02/14/2018 8:35 AM EDT [id number] THINPREP PAP, IMAGED: NEGATIVE FOR SQUAMOUS INTRAEPITHELIAL LESION AND MALIGNANCY . RESULT OF APTIMA HIGH RISK HPV ASSAY: NEGATIVE (SEROTYPES 16,18,31,33,35,39,45,51,52,56,58,59,66,68) RENEE BELLO(ASCP) (CASE ELECTRONICALLY SIGNED 02 12 2018) ADEQUACY: SATISFACTORY. ENDOCERVICAL/TRANSFORMATION ZONE COMPONENT PRESENT. SOURCE: THINPREP PAP HPV ANY DX: REFLEX 16 AND 18, CERVICAL, IMAGED: CLINICAL INFORMATION: HPV ANY DIAGNOSIS. Z12.4, Z01.419, MENOPAUSE, LMP 01/18/2018, PAP HX: NEGATIVE, 02/01/13, HPV N Fidelia Valentino DO LAB CYTOLOGY ORDERABLES Final Result HISTORICAL TESTING LAB RESULTING AGENCY from Last 3 Months or Most Recently Relevant to Health Maintenance Insurance [place]ICA[place] - [place] [facility] [address] [place] [phone] Manager Relationship Specialty Start Date End Date Paulino Justice MD [address] [facility] [place] [id number] PCP - General Internal Medicine 07/19/24
== END 2025-02-26 16:16 | disposition home or self-care (01) ==
LOC: HO.HNS 15:16
PROVIDERS: PCP Family Medicine; Visit Provider Physician Assistant
DX: M54.40 Lumbago with sciatica, unspecified side (principal)
CPT/HCPCS: 99213